=== PATIENT | female | born 1950 | race African-American/Black ===

== ENCOUNTER 2020-12-09 11:50 | Outpatient (CLI) | payer MEDICARE, OTHER | END 2020-12-09 11:51 | disposition home or self-care (01) | LOC: NAV RAD 11:50 | PROVIDERS: ATTEND Nurse Practitioner Family | DX: M21.931 Unspecified acquired deformity of right forearm (principal); M79.89 Other specified soft tissue disorders; M19.031 Primary osteoarthritis, right wrist ==

== ENCOUNTER 2021-12-01 07:54 | Emergency (ER) | payer MEDICARE, MEDICAID | END 2021-12-01 08:51 | disposition home or self-care (01) | LOC: NAV ERS 07:54 | DX: S20.211A Contusion of right front wall of thorax, initial encounter (principal); I10 Essential (primary) hypertension; W19.XXXA Unspecified fall, initial encounter ==